=== PATIENT | female | born 1945 | race Caucasian/White ===

== ENCOUNTER 2018-06-11 11:10 | Emergency (ER) | payer MEDICARE, BC ==
[2018-06-11] MEDS ORDERED: ASPIRIN 81 MG CHEWABLE TABLET PO ONE (11:46)
[2018-06-11] MEDS ORDERED: NITROGLYCERIN 0.4MG SL TABLET #25 BTL SL PRN (11:47)
[2018-06-11 12:05] LABS: BASO % 0.3 % (0-6); EOS % 3.6 % (0-6); GRAN % 63.4 % (47-80); HEMATOCRIT 38.5 % (35.0-47.0); HEMOGLOBIN 12.5 gm/dl (11.6-16.0); LYMPH % 23.1 % (16-45); MEAN CELL VOLUME 93.9 fl (81-97); MEAN CORPUSCULAR HEMOGLOBIN 30.5 pg (27-33); MEAN CORPUSCULAR HGB CONC 32.5 g/dl (32-36); MEAN PLATELET VOLUME 10.1 fl (7.4-10.4); MONO % 9.6 % (0-9); PLATELET COUNT 264 K/uL (130-400); RED CELL DISTRIBUTION WIDTH 14.3 % (11.5-14.5); WHITE BLOOD COUNT W/O DIFF 6.2 K/uL (4.2-12.2)
[2018-06-11 12:18] LABS: BLOOD UREA NITROGEN 18 mg/dL (8-23); CREATININE 0.8 mg/dL (0.5-0.9); EST GLOMERULAR FILTRATION RATE > 60 mL/min
[2018-06-11 12:19] LABS: TOTAL PROTEIN 7.1 g/dL (6.6-8.7)
[2018-06-11 12:21] LABS: GLUCOSE,RANDOM 154 mg/dL (74-109)
[2018-06-11 12:24] LABS: ALB/GLOB RATIO 1.2 (1.1-1.8); ALBUMIN 3.9 g/dL (4.0-5.0); ALKALINE PHOSPHATASE 84 U/L (35-104); ALT/SGPT 56 U/L (<33); AST/SGOT 65 U/L (10.0-35.0); CREATINE PHOSPHOKINASE 83 U/L (26-192)
--- NOTE | 2018-06-11 12:25 | Emergency Department Record ---
History of Present Illness - General Chief Complaint: Chest Pain Stated Complaint: CHEST PAIN Time Seen by Provider: 06/11/18 11:15 Source: Patient Mode of Arrival: Ambulatory Limitations: No limitations - History of Present Illness Initial Comments: pt had her 3rd bought of cp this week. it was pressure like and wrapped around. it started while she was walking. she has never had this before. she has htn and high cholesterol MD Complaint: Chest pain Onset/Timin -: Minutes(s) Pain Location: Left chest Severity scale (1-10): 2 Consistency: Intermittent, Now resolved Worsens With: Inspiration Treatments Prior to Arrival: Other - Related Data Home Medications Medication Instructions Recorded Confirmed Last Taken Ascorbic Acid [Vitamin C] 500 mg PO BID 06/11/18 06/11/18 06/11/18 Aspirin [Aspirin EC] 325 mg PO DAILY 06/11/18 06/11/18 06/11/18 Atorvastatin Calcium 20 mg PO DAILY 06/11/18 06/11/18 06/11/18 Bumetanide [Bumex] 1 mg PO DAILY 06/11/18 06/11/18 06/11/18 Calcium Carbonate [Calcium] 600 mg PO BID 06/11/18 06/11/18 06/11/18 Carvedilol 25 mg PO BID 06/11/18 06/11/18 06/11/18 Cholecalciferol (Vitamin D3) 5,000 unit PO DAILY 06/11/18 06/11/18 06/11/18 [Vitamin D3] Cyanocobalamin (Vitamin B-12) 5,000 mcg PO DAILY 06/11/18 06/11/18 06/11/18 [Vitamin B12] Duloxetine HCl [Cymbalta] 60 mg PO DAILY 06/11/18 06/11/18 06/11/18 Ibuprofen 200 mg PO DAILY PRN 06/11/18 06/11/18 06/11/18 Losartan Potassium 100 mg PO BID 06/11/18 06/11/18 06/11/18 Melatonin 5 mg PO QHS 06/11/18 06/11/18 06/11/18 Multivitamin [One-Daily 1 each PO DAILY 06/11/18 06/11/18 06/11/18 Multi-Vitamin] Omeprazole [Prilosec] 20 mg PO DAILY 06/11/18 06/11/18 06/11/18 Pramipexole Di-HCl [Pramipexole 2 mg PO DAILY 06/11/18 06/11/18 06/11/18 Dihydrochloride] Tiotropium Br/Olodaterol HCl 2 puff IH DAILY 06/11/18 06/11/18 06/11/18 [Stiolto Respimat Inhal [place]] Allergies Allergy/AdvReac Type Severity Reaction Status Date / Time Calcium Channel Blocking Allergy SWELLING Verified 06/11/18 11:21 Agents-Dih OF THE LIPS Sulfa (Sulfonamide Allergy RASH Verified 06/11/18 11:21 Antibiotics) hydromorphone [From Dilaudid] AdvReac NAUSEA AND Verified 06/11/18 11:21 VOMITING vilazodone [From Viibryd] AdvReac HYPERSENSIT Verified 06/11/18 11:21 IVITY Travel Screening - Travel/Exposure Within Last 30 Days Have you traveled within the last 30 days?: No - Travel/Exposure Within Last Year Have you traveled outside the [place] in the last year?: Yes Location Detail:: [place] - Additonal Travel Details Have you been exposed to anyone with a communicable illness?: No - Travel Symptoms Symptom Screening: None Review of Systems Reviewed: No additional complaints except as noted below Constitutional: Reports: As per HPI. Denies: Chills, Fever, Malaise, Night sweats, Weakness, Weight change Eyes: Reports: As per HPI. Denies: Eye discharge, Eye pain, Photophobia, Vision change ENT: Reports: As per HPI. Denies: Congestion, Dental pain, Ear pain, Epistaxis , Hearing loss, Throat pain Respiratory: Reports: As per HPI. Denies: Cough, Dyspnea, Hemoptysis, Stridor, Wheezes Cardiovascular: Reports: As per HPI, Chest pain. Denies: Arrhythmia, Dyspnea on exertion, Edema, Murmurs, Orthopnea, Palpitations, Paroxysmal nocturnal dyspnea, Rheumatic Fever, Syncope Endocrine: Reports: As per HPI. Denies: Fatigue, Heat or cold intolerance, Polydipsia, Polyuria Gastrointestinal: Reports: As per HPI. Denies: Abdominal pain, Constipation, Diarrhea, Hematemesis, Hematochezia, Melena, Nausea, Vomiting Genitourinary: Reports: As per HPI. Denies: Abnormal menses, Discharge, Dyspareunia, Dysuria, Frequency, Hematuria, Incontinence, Retention, Urgency Musculoskeletal: Reports: As per HPI. Denies: Arthralgia, Back pain, Gout, Joint swelling, Myalgia, Neck pain Skin: Reports: As per HPI. Denies: Bruising, Change in color, Change in hair/ nails, Lesions, Pruritus, Rash Neurological: Reports: As per HPI. Denies: Abnormal gait, Confusion, Headache, Numbness, Paresthesias, Seizure, Tingling, Tremors, Vertigo, Weakness Psychiatric: Reports: As per HPI. Denies: Anxiety, Auditory hallucinations, Depression, Homicidal thoughts, Suicidal thoughts, Visual hallucinations Hematological/Lymphatic: Reports: As per HPI. Denies: Anemia, Blood Clots, Easy bleeding, Easy bruising, Swollen glands Past Medical History - SOCIAL HISTORY Smoking Status: Former smoker Family Medical History Any Significant Family History?: No Physical Exam - General General Appearance: Alert, Oriented x3, Cooperative, No acute distress - Head Head exam: Normal inspection - Eye Eye exam: Normal appearance, PERRL, EOMI Pupils: Normal accommodation - ENT ENT exam: Normal exam, Mucous membranes moist, Normal external ear exam, Normal orophraynx Ear exam: Normal external inspection. negative: External canal tenderness Nasal Exam: Normal inspection. negative: Discharge, Sinus tenderness Mouth exam: Normal external inspection, Tongue normal Teeth exam: Normal inspection. negative: Dental caries Throat exam: Normal inspection. negative: Tonsillar erythema, Tonsillar exudate - Neck Neck exam: Normal inspection, Full ROM. negative: Tenderness - Respiratory Respiratory exam: Normal lung sounds bilaterally. negative: Respiratory distress - Cardiovascular Cardiovascular Exam: Regular rate, Normal rhythm, Normal heart sounds - GI/Abdominal GI/Abdominal exam: Soft, Normal bowel sounds. negative: Tenderness - Rectal Rectal exam: Deferred - exam: Deferred - Extremities Extremities exam: Normal inspection, Full ROM, Normal capillary refill. negative: Tenderness - Back Back exam: Reports: Normal inspection, Full ROM. Denies: Muscle spasm, Rash noted, Tenderness - Neurological Neurological exam: Alert, CN II-XII intact, Normal gait, Oriented X3 - Psychiatric Psychiatric exam: Normal affect, Normal mood - Skin Skin exam: Dry, Intact, Normal color, Warm Course Vital Signs 06/11/18 11:12 Pulse Rate 83 Respiratory 18 Rate Blood Pressure 124/75 Pulse Ox 98 - Reevaluation(s) Reevaluation #1: 04/04/19 16:11 d/w dr turner w [facility] who stated that pt can f/u with them for stress test Reevaluation #2: 06/11/18 16:13 pt had no cp entire time Medical Decision Making - Lab Data Result diagrams: 06/11/18 11:25 06/11/18 11:25 Lab Results 06/11/18 Range/Units 11:25 WBC 6.2 (4.2-12.2) K/uL RBC 4.10 (3.80-5.40) M/uL Hgb 12.5 (11.6-16.0) gm/dl Hct 38.5 (35.0-47.0) % MCV 93.9 (81-97) fl MCH 30.5 (27-33) pg MCHC 32.5 (32-36) g/dl RDW 14.3 (11.5-14.5) % Plt Count 264 (130-400) K/uL MPV 10.1 (7.4-10.4) fl Gran % 63.4 (47-80) % Lymphocytes % 23.1 (16-45) % Monocytes % 9.6 H (0-9) % Eosinophils % 3.6 (0-6) % Basophils % 0.3 (0-6) % Disposition Disposition: Discharge Clinical Impression: Chest pain Qualifiers: Chest pain type: unspecified Qualified Code(s): R07.9 - Chest pain, unspecified Disposition: Home, Self-Care Condition: (1) Good Instructions: Chest Pain (ED) Additional Instructions: follow up with supervisor type bar and segment in next few days. return sooner if worse. Referrals: MEENU DOWNS M.D. [MEDICAL DOCTOR] - [facility] [Provider Group] Forms: Patient Portal Access Quality - Quality Measures Quality Measures: N/A - Blood Pressure Screening Does Patient Have Any of the Following: No Blood Pressure Classification: Pre-Hypertensive BP Reading Systolic Measurement: 124 Diastolic Measurement: 75 Screening for High Blood Pressure: < Pre-Hypertensive BP, F/U Documented > [ [id number]] Pre-Hypertensive Follow-up Interventions: Follow-up with rescreen every year.
[2018-06-11 12:26] LABS: CKMB 1.3 ng/mL (<3.77)
--- NOTE | 2018-06-13 08:08 | CT ANGIOGRAM REPORT ---
EXAM: CT ANGIOGRAM CHEST CTA w contrast HISTORY: CHEST PAIN. TECHNIQUE: CTA of the chest was performed after intravenous administration of 75 mL Omnipaque-350 contrast material. Sagittal, coronal three-dimensional MIP images were performed on an independent workstation. FINDINGS: No mass or filling defect to suggest pulmonary embolism. Mild cardiomegaly. No pericardial effusion. No mediastinal or hilar lymphadenopathy. Linear atelectasis in the lingular segment. No pleural effusion. Visualized upper abdominal structures are normal. IMPRESSION: 1. NO CTA FINDINGS SUGGESTIVE OF PULMONARY EMBOLISM. 2. LINEAR ATELECTASIS VERSUS SCAR TISSUE LINGULAR SEGMENT. 3. MILD CARDIOMEGALY WITHOUT PERICARDIAL EFFUSION. JOB NUMBER: [id number] [facility]
== END 2018-06-11 16:28 | disposition home or self-care (01) ==
LOC: ER 11:10
DX: R07.89 Other chest pain (principal); I10 Essential (primary) hypertension; Z87.891 Personal history of nicotine dependence
CPT/HCPCS: 99284 ×2; 82550; 85025; 82553; 80053; 84484; 85379; 83880; 71275; 93005; 93010; Q9967